=== PATIENT | female | born 2005 | race Caucasian/White ===

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

== ENCOUNTER → 2024-11-17 | Outpatient (CLI) | payer OTHER ==
[~2024-11-17] MED LIST changes: +ONDA4ODT MM
== END ==
LOC: LAB SHORT 18:10 → LAB 18:10
DX: R82.998 Other abnormal findings in urine (principal)
CPT/HCPCS: 87077; 87086; 87185; 87186

== ENCOUNTER → 2024-11-25 | Outpatient (CLI) | payer OTHER ==
[2024-11-27 13:14] LABS: APTIMA MEDIA TYPE Urine; C. TRACHOMATIS BY TMA Negative (Negative); N. GONORRHOEAE BY TMA Negative (Negative)
== END ==
LOC: LAB SHORT 16:56 → LAB 16:56
PROVIDERS: Obstetrics & Gynecology
DX: Z34.01 Encounter for supervision of normal first pregnancy, first trimester (principal)
CPT/HCPCS: 87491; 87591